=== PATIENT | male | born 1970 | race Caucasian/White ===

== ENCOUNTER → 2018-08-04 | Outpatient (CLI) | payer OTHER ==
--- NOTE | 2018-08-04 19:54 | MR ---
EXAMINATION TYPE: MR lumbar spine wo con DATE OF EXAM: 08/04/2018 COMPARISON: Prior MRI lumbar spine September 25, 2016 HISTORY: Intervertebral disc degeneration per order., Back pain causing pain into left buttocks and t high for 3 years per patient. TECHNIQUE: Multiplanar, multisequence imaging of the lumbar spine is performed without IV contrast. FINDINGS: Sagittal images of the lumbar spine show vertebral body heights and alignment to remained s atisfactory. There is disc desiccation with mild disc space narrowing at L5-S1 level redemonstrated. There is new disc desiccation with mild disc space narrowing at L2-L3 level. Posterior disc herniatio ns are redemonstrated at these levels on sagittal images. The conus medullaris remains normal in pos ition and signal ending mid L1 level. The bone marrow signal intensity is within normal limits. No s ignificant spurring is present. Axial images show the T12-L1 and L1-L2 levels to remain within normal limits. Axial images at L2-L3 level show more prominent [id number] broad-based posterior disc protrusio n mildly effacing the anterior thecal sac and axial image 19 and causing mild bilateral anterior infe rior neural foraminal narrowing. Axial images at L3-L4 and L4-L5 level remain within normal limits. Axial images at L5-S1 level mild facet degenerative changes bilaterally. The central disc protrusion seen. Spinal canal is preserved. Bilateral neural foramina are patent. No significant change from minesh or. No suspicious retroperitoneal findings are seen. IMPRESSION: New degenerative changes L2-L3 level. Stable degenerative changes L5-S1 level.
== END | disposition home or self-care (01) ==
LOC: RADMRIMAIN 18:07
PROVIDERS: ATTEND Family Medicine
DX: M47.816 Spondylosis without myelopathy or radiculopathy, lumbar region (principal); M47.817 Spondylosis without myelopathy or radiculopathy, lumbosacral region
CPT/HCPCS: 72148